=== PATIENT | female | born 1995 | race Caucasian/White ===

== ENCOUNTER 2019-11-22 13:00 | Inpatient (IN) | payer BC ==
[2019-11-22] MEDS ORDERED: ELECTROLYTE-148 SOLN 500 ML IV ONE (13:37)
[2019-11-22] MEDS ORDERED: CITRIC ACID/SODIUM CITRATE 30 ML UNIT-DOSE CUP PO ONE ×2 (13:37→13:38)
--- NOTE | 2019-11-22 13:42 | HP ---
Past Medical History - Primary Care Physician PCP:: Jori Arzate - Admission Chief Complaint: repeat lt c s History of Present Illness: repeat lt c s History Source: Patient Limitations to Obtaining History: No Limitations - Past Medical History INDUSTRIAL GAS FITTER: No: Alzheimer's, CVA, Dementia, Migraine, Multiple Sclerosis, Peripheral Neuropathy, Parkinson's, Seizure, Syncope, TIA, Vertigo, Other Cardiovascular: No: AFIB, Aneurysm, Aortic Insufficiency, Aortic Stenosis, CAD, CHF, Deep Vein Thrombosis, HTN, Hyperlipdemia, MO, Mitral Insufficiency, Mitral Stenosis, Murmur, Pulmonary Hypertension, Other Pulmonary: No: Asthma, Bronchitis, Cancer, COPD, O2 Dependent, Pneumonia, Previously Intubated, Pulmonary Embolus, Pulmonary Fibrosis, Sleep Apnea, Other Gastrointestinal: No: Ascites, Cancer, Constipation, Crohn's Disease, Diverticulitis, Diverticulosis, Esophageal Varices, Gastritis, GERD, GI Bleed, Hemorrhoids, Hiatal Hernia, Inflamatory Bowel Disease, Irritable Bowel Disease, Pancreatitis, Peptic Ulcer Disease, Ulcerative Colitis, Other Hepatobiliary: No: Cirrhosis, Cholelithiasis, Cholecystitis, Choledocholithiasis, Hepatitis A, Hepatitis B, Hepatitis C, Other Renal/: No: Renal Failure, Renal Inusuff, BPH, Cancer, Hematuria, Hemodial ysis, Neurogenic Bladder, Renal Calculi, UTI, Other Reproductive: No: Ectopic , Endometriosis, Fibroids, PID, Polycystic Ovary Syndrome, Postmenopausal, Other ...Para: 2 Heme/Onc: No: Anemia, B12 Deficiency, Bleeding Disorder, Cancer, Current Chemotherapy, Current Radiation Therapy, Hemochromatosis, Hypercoaguable State, Myeloproliferative Synd, Sickle Cell Disease, Sickle Cell Trait, Thrombocytopenia, Other Infectious Disease: No: AIDS, C-Diff, Herpes Zoster, HIV, MRSA, STD's, Tubercul osis, VREF, Other Psych: No: Addictions, Anxiety, Bipolar, Depression, Panic, Psychosis, Schizophrenia, Other Musculoskeletal: No: Bursitis, Chronic low back pain, Hemiparesis, Hemiplegia, Osteoarthritis, Paraplegia, Other Rheumatology: No: Fibromyalgia, Gout, Lupus, Rheumatoid Arthritis, Sarcoidosis, Vasculitis, Other ENT: No: Allergic Rhinitis, Sinusitis, Other Endocrine: No: Palisade's Disease, Selden's Disease, Diabetes Insipidus, Diabetes Mellitus, Hyperparathyroidism, Hyperthyroidism, Hypothyroidism, Osteopenia, SIADH, Other Dermatology: No: Basal Cell, Cellulitis, Eczema, Melanoma, Psoriasis, Squamous Cell, Other - Past Surgical History Past Surgical History: Yes: Hx Myomectomy: No Hx Transabdominal Cerclage: No - Advance Directives Advance Directives: Yes: Living Will - Smoking History Smoking history: Never smoked Have you smoked in the past 12 months: No - Alcohol/Substance Use Hx Alcohol Use: No History of Substance Use: reports: None - Social History Usual Living Arrangement: Yes: With Significant Other Do you think of yourself as: Straight/Heterosexual ADL: Independent History of Recent Travel: No Home Medications - Allergies Allergies/Adverse Reactions: Allergies Allergy/AdvReac Type Severity Reaction Status Date / Time No Known Allergies Allergy Verified 11/14/19 11:43 - Home Medications Home Medications: Ambulatory Orders Cephalexin Monohydrate [Keflex -] 500 mg PO BID #14 capsule 11/14/19 Family Medical History Family History: Denies Review of Systems - Review of Systems Constitutional: reports: No Symptoms Eyes: reports: No Symptoms HENT: reports: No Symptoms Neck: reports: No Symptoms Cardiovascular: reports: No Symptoms Respiratory: reports: No Symptoms Gastrointestinal: reports: No Symptoms Genitourinary: reports: No Symptoms Breasts: reports: No Symptoms Reported Musculoskeletal: reports: No Symptoms Integumentary: reports: No Symptoms Neurological: reports: No Symptoms Endocrine: reports: No Symptoms Hematology/Lymphatic: reports: No Symptoms Psychiatric: reports: No Symptoms Physical Exam - Maternity Constitutional: Yes: Well Nourished, No Distress, Calm Eyes: Yes: WNL, Conjunctiva Clear, EOM Intact HENT: Yes: WNL, Atraumatic, Normocephalic Neck: Yes: WNL, Supple, Trachea Midline Cardiovascular: Yes: WNL, Regular Rate and Rhythm Lungs: Clear to auscultation Breast(s): Yes: WNL - Abdominal Exam/OB Fundal Height: 38 Number of Fetuses: Single Presentation: Vertex Contractions: Yes Regularity: Irregular Intensity: Mild Monitor Mode: External Heart Rate Location: [facility] Category: I Accelerations: Uniform Decelerations: None - Vaginal Exam/OB Vaginal Bleeding: No Speculum Exam: No Presentation: Vertex/Position Station: -2 - Physical Exam Musculoskeletal: Yes: WNL Extremities: Yes: WNL Edema: Yes Edema: LUE: 1+, RUE: 1+, LLE: 1+, RLE: 1+ Integumentary: Yes: WNL Deep Tendon Reflex Grade: Normal +2 ...Motor Strength: WNL Psychiatric: Yes: WNL, Alert, Oriented Hemorrhage Risk Assessment - Risk Factors Medium Risk Factors: Yes: None High Risk Factors: Yes: None Risk Score: 1 Risk Level: Medium Risk Assessment/Plan for repeat ltc s
[2019-11-22] MEDS ORDERED: ELECTROLYTE-148 SOLN 1,000 ML IV SCH (13:45)
[2019-11-22] MEDS ORDERED: ONDANSETRON 4 MG/2 ML VIAL IVPUSH PRN (14:04)
[2019-11-22 14:40] VITALS: BMI 37.1
[2019-11-22] MEDS ORDERED: morphine SULFATE/PF 0.5 MG/ML (2cc Syringe - QUVA) ONE (15:00)
[2019-11-22] MEDS ORDERED: ePHEDrine SULFATE 50 MG/1 ML AMPULE ONE ×2 (15:35→15:58)
[2019-11-22] MEDS ORDERED: OXYTOCIN 10 UNITS/ML VIAL ONE ×2 (15:58)
[2019-11-22] MEDS ORDERED: ceFAZolin SODIUM 1 GM VIAL ONE ×2 (15:58)
[2019-11-22] MEDS ORDERED: SENNOSIDES/DOCUSATE COMBO (SENNA PLUS) TABLET (UD) PO PRN (16:37)
[2019-11-22] MEDS ORDERED: METHYLERGONOVINE MALEATE 0.2 MG/1 ML AMP IM PRN (16:37)
[2019-11-22] MEDS ORDERED: oxyCODONE HCL 5 MG TABLET PO PRN ×2 (16:37)
[2019-11-22] MEDS ORDERED: IBUPROFEN 800 MG/8 ML IJ IVPB PRN (16:37)
[2019-11-22] MEDS ORDERED: IBUPROFEN 600 MG TABLET (FP) PO PRN (16:37)
[2019-11-22] MEDS ORDERED: ACETAMINOPHEN 325 MG TABLET (FP) PO PRN (16:37)
[2019-11-22] MEDS ORDERED: OXYTOCIN 20 UNITS in 0.9% NS 20 UNIT/1,000 ML INFUS.BAG IV SCH (16:45)
--- NOTE | 2019-11-22 16:45 | OP ---
Operative Note - Note: Operative Date: 11/22/19 Pre-Operative Diagnosis: repeat lt c s Operation: repeat lt c s Findings: no adhesions Post-Operative Diagnosis: Same as Pre-op Surgeon: Jori Arzate Virtual Assistant For Advertisers: Ken Steward Anesthesiologist/FLIGHT COMMUNICATIONS SPECIALIST: Tee Pinedo Anesthesia: Spinal Estimated Blood Loss (mls): 500 (no complications , true knot x 1 ) Operative Report Dictated: Yes
[2019-11-22] MEDS ORDERED: OXYTOCIN 20 UNITS in 0.9% NS 20 UNIT/1,000 ML INFUS.BAG IV ONE (17:09)
[2019-11-22] MEDS ORDERED: IBUPROFEN 800 MG/8 ML IJ IVPB ONE (17:17)
[2019-11-23 08:53] LABS: BASO % 0.1 % (0-2.0); EOS % 1.9 % (0-4.5); HEMATOCRIT 32.2 % (32.4-45.2); HEMOGLOBIN 10.8 GM/dL (10.7-15.3); LYMPH % 12.2 % (8-40); MCH 28.5 pg (25.7-33.7); MCHC 33.7 g/dl (32.0-36.0); MEAN CELL VOLUME 84.5 fl (80-96); MEAN PLT VOLUME 8.1 fl (7.5-11.1); MONO % 4.6 % (3.8-10.2); NEUT % 81.2 % (42.8-82.8); PLATELET COUNT 181 K/MM3 (134-434); RBC 3.81 M/mm3 (3.60-5.2); RDW 14.2 % (11.6-15.6); WHITE BLOOD COUNT 9.6 K/mm3 (4.0-10.0)
[2019-11-23] MEDS: PRENATAL VITAMINS W/ FOLIC ACID TABLET (FP) PO SCH (09:49)
[2019-11-23] MEDS: ENOXAPARIN NA (PORCINE) 40 MG/0.4 ML DISP.SYRIN SQ SCH (09:49)
[2019-11-23] MEDS ORDERED: FLU VACCINE QUAD 60 MCG/0.5 ML (MDV 19-20) IM ONE (10:00)
[2019-11-23] MEDS ORDERED: FLU VACC QS2019-20(6MOS UP)/PF 60 MCG/0.5 ML SYRINGE IM ONE (10:00)
[2019-11-23] MEDS: ACETAMINOPHEN 325 MG TABLET (FP) PO PRN ×2 (11:14→22:03)
[2019-11-23] MEDS: IBUPROFEN 600 MG TABLET (FP) PO PRN ×2 (11:14→22:04)
[2019-11-23] MEDS: SIMETHICONE 80 MG TAB.CHEW (FP) PO PRN ×2 (11:15→22:03)
--- NOTE | 2019-11-23 13:32 | OP ---
DATE OF OPERATION: 11/22/2019 PREOPERATIVE DIAGNOSIS: Repeat low transverse section. POSTOPERATIVE DIAGNOSIS: Repeat low transverse section. PROCEDURE: Repeat low transverse section. SURGEON: Jori Arzate MD SLICING MACHINE FEEDER: MIKE Pedraza ANESTHESIOLOGIST: Tee Pinedo MD ANESTHESIA: Spinal. INDICATION: A 24-year-old female patient with previous history of low transverse section, 39 weeks , scheduled for today at 1:00; however, it got postponed to 3:00 because got delayed by other cases. DESCRIPTION OF PROCEDURE: Patient was placed on operating table in supine position. After spinal anesthesia was obtained the patient's abdomen and pelvis were prepped and draped in the usual sterile manner. Pfannenstiel incision was made. Incision was made through skin and subcutaneous tissue until the fascia was nicked in the midline. The fascia extended bilaterally. Intraperitoneal cavity was entered. Bladder flap was not created. Low transverse segment of the uterus was entered. Baby delivered from the LOT position and a true knot x1. Baby was handed over to biomechanical engineer after umbilical cord doubly clamped and cut. Cord blood gas. The placenta was removed and uterus closed in single layer, first layer interlocking Vicryl sutures. Good hemostasis. Both gutters cleaned. Both ovaries, fallopian tubes, uterus were within normal limits. No complication. Tolerated procedure well. Draining clear urine. Blood loss about 500 mL. Peritoneum was closed. Fascia was closed. Skin was closed. Transferred to recovery room in stable condition. MD NIKI SEPULVEDA/[id number]
[2019-11-23] MEDS ORDERED: BISACODYL 10 MG SUPP.RECT RC PRN (16:37)
--- NOTE | 2019-11-24 08:35 | PN ---
Post Progress Note Post Day: 2 Type of Delivery: Repeat C/S Vital Signs: Vital Signs Temperature 98.1 F 11/23/19 22:00 Pulse Rate 71 11/23/19 22:00 Respiratory Rate 20 11/23/19 22:00 Blood Pressure 127/75 11/23/19 22:00 O2 Sat by Pulse Oximetry (%) 100 11/22/19 17:50 Breast Exam: Yes: Soft Uterus: Yes: Fundus Firm Incision: Yes: Dressing dry and intact, Sutures intact Abdomen/GI: Yes: Abdomen soft, Passing flatus, Tolerating PO Lochia: Yes: Serosa Lochia, amount: Small Extremities: Yes: Calves non-tender Activity: Ambulating - Labs Labs: CBC WBC 9.6 K/mm3 (4.0-10.0) 11/23/19 07:57 RBC 3.81 M/mm3 (3.60-5.2) 11/23/19 07:57 Hgb 10.8 GM/dL (10.7-15.3) 11/23/19 07:57 Hct 32.2 % (32.4-45.2) L 11/23/19 07:57 MCV 84.5 fl (80-96) 11/23/19 07:57 MCH 28.5 pg (25.7-33.7) 11/23/19 07:57 MCHC 33.7 g/dl (32.0-36.0) 11/23/19 07:57 RDW 14.2 % (11.6-15.6) 11/23/19 07:57 Plt Count 181 K/MM3 (134-434) 11/23/19 07:57 MPV 8.1 fl (7.5-11.1) 11/23/19 07:57 Absolute Neuts (auto) 7.8 K/mm3 (1.5-8.0) 11/23/19 07:57 Neutrophils % 81.2 % (42.8-82.8) 11/23/19 07:57 Lymphocytes % 12.2 % (8-40) D 11/23/19 07:57 Monocytes % 4.6 % (3.8-10.2) 11/23/19 07:57 Eosinophils % 1.9 % (0-4.5) 11/23/19 07:57 Basophils % 0.1 % (0-2.0) 11/23/19 07:57 Nucleated RBC % 0 % (0-0) 11/23/19 07:57 Assessment/Plan doing well, dc pt home today
--- NOTE | 2019-11-24 08:39 | DS ---
Physical Exam-INFORMATION SYSTEMS SECURITY MANAGER Vital Signs: Vital Signs Temperature 98.1 F 11/23/19 22:00 Pulse Rate 71 11/23/19 22:00 Respiratory Rate 20 11/23/19 22:00 Blood Pressure 127/75 11/23/19 22:00 O2 Sat by Pulse Oximetry (%) 100 11/22/19 17:50 Constitutional: Yes: Well Nourished, No Distress, Calm Eyes: Yes: WNL, Conjunctiva Clear, EOM Intact HENT: Yes: WNL, Atraumatic, Normocephalic Neck: Yes: WNL, Supple, Trachea Midline Cardiovascular: Yes: WNL, Regular Rate and Rhythm Respiratory: Yes: WNL, Regular, CTA Bilaterally Gastrointestinal: Yes: WNL, Normal Bowel Sounds, Soft ...Rectal Exam: Yes: WNL Renal/: Yes: WNL Pelvis: Yes: WNL External Genitalia: Yes: Normal Internal Exam Deferred: Yes Vaginal Exam: Yes: Normal Cervix: Yes: Normal Uterus: Yes: Normal Adnexa: Normal: Bilateral ....Post : Yes: Uterus firm, Uterus non-tender Breast(s): Yes: WNL Musculoskeletal: Yes: WNL Extremities: Yes: WNL Edema: Yes Edema: LUE: 1+, RUE: 1+, LLE: 1+, RLE: 1+ Integumentary: Yes: WNL Wound/Incision: Yes: Clean/Dry, Well Approximated, Sutures Intact, Dressing Dry and Intact Neurological: Yes: WNL, Alert, Oriented ...Motor Strength: WNL Psychiatric: Yes: WNL, Alert, Oriented Labs: CBC, BMP 11/23/19 07:57 Delivery - Delivery Section: Repeat Type of Anesthesia: Spinal Episiotomy/Laceration: None Delivery, Single - Stages of Labor Date of Delivery: 11/22/19 Time of Delivery: 15:45 Time Placenta Delivered: 15:46 - Condition of Infant Electromechanical Equipment Assembler/Business Area Manager Present: Yes Name: Lenka Magana Gender: Female Weight: 3.544 kg Position: Left, OT Total Hours ROM (Hrs/Mins): 0Hrs/3MIns - 1 Minute Total Score: 9 5 Minutes Total Score: 9 - Feeding Plan Initial Plan: Elected not to breastfeed exclusively throughout hospitalization Discharge Summary Problems reviewed: Yes Reason For Visit: Procedures: Principal: repeat lt c s Other Procedures: none Hospital Course: uneventful Health Concerns: none Plan of Treatment: oob as much as possible Condition: Good - Instructions Diet, Activity, Other Instructions: Physical activity Resume your normal everyday activity as tolerated no heavy lifting or exercise until seen by your surgeon. You may walk unlimited nickie of and climb stairs. You may resume driving the car when you feel safe and comfortable behind the wheel. No sexual activity as instructed. Wound care If you have a bandage, leave it on, and keep dry for 48-72 hours. After that time discard the outer bandage. If they are tapes on the skin under the out of bandage leave them in place. They will peel off in the next 7 to 10 days. Do Not Peel them off. You may shower the day after surgery. If there are tapes present on the skin, you may shower over them. Diet There are no dietary restrictions. Eat healthy, high-fiber foods. Drink 6 to 8 glasses of liquid each day. This will assist in keeping your bowels are regular. Pain management You may take Tylenol or acetaminophen or Ibuprofen (for example, Motrin, Advil etc.) from my pain prescription medication is ordered should be taken as prescribed for moderate to severe pain. Call MD for any of the following: call dr israel office for 2 weeks appointment Severe pain not relieved by medication Fever of 101 or higher Excessive bleeding or drainage on dressing Inability to urinate Disposition: HOME - Home Medications Comprehensive Discharge Medication List: Ambulatory Orders Cephalexin Monohydrate [Keflex -] 500 mg PO BID #14 capsule 11/14/19 Prescription Drug Monitoring Program (I-STOP) results: I-STOP reviewed and no issues identified
[2019-11-24] MEDS: ENOXAPARIN NA (PORCINE) 40 MG/0.4 ML DISP.SYRIN SQ SCH (10:21)
[2019-11-24] MEDS: PRENATAL VITAMINS W/ FOLIC ACID TABLET (FP) PO SCH (10:22)
[2019-11-24 15:25] VITALS: BP 118/68; PULSE 68; TEMP 98
--- NOTE | 2019-11-27 14:54 | PATH ---
Surgical Pathology Report Patient Name: ANURAG HEATON Med. Rec. #: [id number] /Age/Gender: 1995 (Age: 24) / F Account: [id number] Location: [facility] OBS/EDUCATIONAL TECHNOLOGY SPECIALIST Taken: 11/22/2019 Received: 11/25/2019 Reported: 11/27/2019 Physicians: Jori Arzaet MD Specimen(s) Received PLACENTA Clinical History , 39 weeks Final Diagnosis PLACENTA, SECTION: 527 G THIRD TRIMESTER PLACENTA WITH TRIVASCULAR UMBILICAL CORD AND UNREMARKABLE PLACENTAL MEMBRANES. Electronically Signed Trang Tubbs M.D. Gross Description The specimen is received fresh labeled placenta and is a 527 gram, 19.0 x 16.0 x 2.5 cm. placenta with attached membranes and umbilical cord. The attached membranes are mccormick, thick, cloudy and insert marginally. The umbilical cord measures 43 cm. in length and averages 1.2 cm. in diameter. The cord inserts eccentrically, 3 cm. to the nearest margin. There is a true knot present in the umbilical cord. Cut surface of the umbilical cord reveals 3 vessels. The surface is hart blue with moderate fibrin deposition and appropriate caliber vessels. The maternal surface is red-brown with focal defects. Sectioning reveals red-brown, spongy parenchyma. No lesions are identified. Erection Shop Supervisor sections are submitted in three cassettes as follows: 1- membrane rolls and umbilical cord; 2-3- full thickness sections of placenta. /11/26/2019 saudi/11/26/2019
== END 2019-11-24 13:40 | disposition home or self-care (01) | DRG 788 ==
LOC: EDUNIT# 13:00 → JLDR 13:25 → J3W 19:45
PROVIDERS: ADMIT Obstetrics & Gynecology; ATTEND Obstetrics & Gynecology
PROC: 10D00Z1 Extraction of Products of Conception, Low, Open Approach (ICD-10-PCS; principal; 2019-11-22)
DX: O82 Encounter for cesarean delivery without indication (principal); O69.2XX0 Labor and delivery complicated by other cord entanglement, with compression, not applicable or unspecified; O34.211 Maternal care for low transverse scar from previous cesarean delivery; Z37.0 Single live birth; Z3A.39 39 weeks gestation of pregnancy
CPT/HCPCS: 36415; 85025; 88307-TC; 90686; G0008